=== PATIENT | male | born 1965 | race Caucasian/White ===

== ENCOUNTER 2016-06-09 23:22 | Emergency (ER) | payer SELFPAY ==
[~2016-06-09] VITALS: Ht 213.4 cm; Wt 79.9 kg
[2016-06-09 23:34] VITALS: Ht 213.4 cm; Wt 79.9 kg
[2016-06-10] MEDS ORDERED: ESCI1TAB10 PO (00:16)
[2016-06-10] MEDS ORDERED: PANT40TA PO (00:16)
[2016-06-10] MEDS ORDERED: OLAN5TAB3 PO (00:17)
[2016-06-10] MEDS ORDERED: HYDR4TAB78 PO (00:18)
[2016-06-10] MEDS ORDERED: HYDR8TAB29 PO (00:18)
[2016-06-10] MEDS ORDERED: LIDOCAINE/EPINEPH/TETRACAINE 1 EA SYR ONE (00:32)
--- NOTE | 2016-06-10 01:04 | EMERGENCY ROOM VISIT NOTE ---
History Report prepared by Ra: Nesha Patrick Under the Supervision of: Dr. Lilli Kebede D.O. First contact with patient: 00:06 Chief Complaint: PAIN (GENERALIZED) Stated Complaint: CANCER PATIENT,PAIN IN LOW BACK AND STOMACH History of Present Illness The patient is a 51 year old male who presents to the Emergency Room with complaints of persistent generalized aches that began prior to arrival. He currently rates his discomfort as a 7/10 in severity. The patient states that he has a history of esophageal cancer, but denies receiving any current treatment. He states that he received both chemotherapy and radiation once in the past. The patient notes that he was diagnosed with his cancer in 2014. He states that he feels he is retaining fluid in his back. The patient notes increased swelling to his lower extremities. He states that his doctors are concerned about his kidneys. The patient notes a decrease in appetite and constipation. The patient states that he has tried using an enema two days ago , but has become constipated again. The patient denies any fever, chills, chest pain, nausea, or vomiting. He reports increased abdominal pain when lying flat. The patient reports shortness of breath with walking up the stairs. The patient states that to sleep, he has been sleeping upright with his legs crisscrossed. Source of History: patient Onset: prior to arrival Position: other (global) Symptom Intensity: 7/10 Quality: other (generalized pain) Timing: other (persistent) Associated Symptoms: + SOB, + abdominal pain, No chest pain, No chills, No fevers, No nausea, No vomiting Note: Associated Symptoms: decrease in appetite, increased swelling to lower extremities, constipation Review of Systems See HPI for pertinent positives & negatives. A total of 10 systems reviewed and were otherwise negative. Past Medical & Surgical Medical Problems: (1) Esophageal cancer Family History No pertinent family history stated. Social History Smoking Status: Former Smoker Marital Status: Housing Status: lives with significant other Current/Historical Medications Scheduled Escitalopram Oxalate (Lexapro), 20 MG PO DAILY Furosemide (Lasix), 1 TAB PO DAILY Hydromorphone Hcl (Dilaudid), 16 MG PO BID Pantoprazole (Protonix), 40 MG PO DAILY Potassium Chloride (Micro-K Ext Rel), 10 MEQ PO DAILY Scheduled PRN Hydromorphone Hcl (Dilaudid), 4 MG PO UD PRN for Breakthrough Pain Olanzapine (Zyprexa Zydis Odt), 1 DOSE PO Q6 PRN for Pain Allergies Coded Allergies: No Known Allergies (Unverified , 06/10/16) Physical Exam Vital Signs Date Time Temp Pulse Resp B/P Pulse Ox O2 Delivery O2 Flow Rate FiO2 06/10/16 03:08 71 16 103/74 98 Room Air 06/10/16 01:20 79 16 109/61 97 Room Air 06/10/16 00:45 83 Physical Exam HEENT: Head - normocephalic and atraumatic Pupils are equal, round, and reactive to light. Extraocular eye muscles are intact, and sclera are anicteric. Nose - moist nasal mucosa without discharge. Mouth - moist buccal mucosa. Oropharynx is nonerythematous and there is no tonsillar exudate or edema noted. Neck: Supple; no JVD, nuchal rigidity, cervical lymphadenopathy, or auscultated bruits. Heart: Regular rate and rhythm. There is a normal S1 and S2 with no murmurs, clicks, or gallops appreciated. Lungs: Clear to auscultation bilaterally with no wheezes, rales, or rhonchi. Abdomen: Moderately distended, hypoactive bowel sounds. Soft, completely nontender. There are no palpable pulsatile masses or hepatosplenomegaly. There is no guarding, rigidity, or rebound noted. Back: Trace sacral edema. Extremities: 2+ pitting edema in the legs. No evidence of cyanosis, clubbing. There are easily palpable peripheral pulses. Skin: Gardner, warm and dry with good turgor and no rashes. Medical Decision & Procedures ER Provider Diagnostic Interpretation: 2 view abdomen, obstruction series, interpreted by me: chest is unremarkable, Mediport in place, no free air in abdomen, normal bowel gas pattern, moderate colonic fecal retention Laboratory Results 06/10/16 01:20 Red Blood Count 3.61, Mean Corpuscular Volume 88.4, Mean Corpuscular Hemoglobin 29.1, Mean Corpuscular Hemoglobin Concent 32.9, Mean Platelet Volume 9.3, Neutrophils (%) (Auto) 80.0, Lymphocytes (%) (Auto) 9.4, Monocytes (%) (Auto) 7.4, Eosinophils (%) (Auto) 2.7, Basophils (%) (Auto) 0.5, Neutrophils # (Auto) 4.42, Lymphocytes # (Auto) 0.52, Monocytes # (Auto) 0.41, Eosinophils # (Auto) 0.15, Basophils # (Auto) 0.03 06/10/16 01:20 Test 06/10/16 01:20 White Blood Count 5.53 K/uL (4.8-10.8) Red Blood Count 3.61 M/uL (4.7-6.1) Hemoglobin 10.5 g/dL (14.0-18.0) Hematocrit 31.9 % (42-52) Mean Corpuscular Volume 88.4 fL (80-100) Mean Corpuscular Hemoglobin 29.1 pg (25-34) Mean Corpuscular Hemoglobin Concent 32.9 g/dl (32-36) Platelet Count 80 K/uL (130-400) Mean Platelet Volume 9.3 fL (7.4-10.4) Neutrophils (%) (Auto) 80.0 % Lymphocytes (%) (Auto) 9.4 % Monocytes (%) (Auto) 7.4 % Eosinophils (%) (Auto) 2.7 % Basophils (%) (Auto) 0.5 % Neutrophils # (Auto) 4.42 K/uL (1.4-6.5) Lymphocytes # (Auto) 0.52 K/uL (1.2-3.4) Monocytes # (Auto) 0.41 K/uL (0.11-0.59) Eosinophils # (Auto) 0.15 K/uL (0-0.5) Basophils # (Auto) 0.03 K/uL (0-0.2) RDW Standard Deviation 48.7 fL (36.4-46.3) RDW Coefficient of Variation 14.9 % (11.5-14.5) Immature Granulocyte % (Auto) 0.0 % Immature Granulocyte # (Auto) 0.00 K/uL (0.00-0.02) Platelet Estimate DECREASED Anion Gap 8.0 mmol/L (3-11) Est Creatinine Clear Calc Drug Dose 125.0 ml/min Estimated GFR () 120.5 Estimated GFR (Non- 104.0 BUN/Creatinine Ratio 12.2 (10-20) Calcium Level 8.6 mg/dl (8.5-10.1) Total Bilirubin 1.3 mg/dl (0.2-1) Direct Bilirubin 0.8 mg/dl (0-0.2) Aspartate Amino Transf (AST/SGOT) 176 U/L (15-37) Alanine Aminotransferase (ALT/SGPT) 166 U/L (12-78) Alkaline Phosphatase 803 U/L (45-117) Total Creatine Kinase 336 U/L (39-308) Creatine Kinase MB < 0.5 ng/ml (0.5-3.6) Creatine Kinase MB Ratio (0-3.0) Troponin I < 0.015 ng/ml (0-0.045) Pro-B-Type Natriuretic Peptide 55 pg/ml (0-900) Total Protein 6.7 gm/dl (6.4-8.2) Albumin 3.0 gm/dl (3.4-5.0) Laboratory results per my review. Medications Administered Medications (Trade) Dose Ordered Sig/Tram Route Start Time Stop Time Status Last Admin Dose Admin Tetracaine/ Epinephrine/ Lidocaine (L.e.t. Gel 4%/ 1:100/0.5%) 1 ea STK-MED ONCE .ROUTE 06/10/16 00:32 06/10/16 00:33 DC 06/10/16 00:32 1 EA Procedure The patient was treated with Tetracaine/Epinephrine/Lidocaine to port sight. Potassium Chloride 10 meq PO, Lasix Tab 20 mg PO. ECG Indication: abdominal pain Rate (beats per minute): 82 Rhythm: normal sinus Findings: no acute ischemic change, no ectopy ED Course 0016: Past medical records reviewed. The patient was evaluated in room B3B. A complete history and physical exam was performed. Laboratory studies were drawn as above. 0021: I spoke to the patient's oncologist. 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 She notes that they have exhausted all standard therapies, and is going to be placed on a clinical trial of immunotherapy. She notes that the patient had edema around his ankles at the morning clinic. She states that the patient has not been eating very well. She notes that the patient's hemoglobin was 11.9, creatinine 0.6, AST and ALT slightly elevated, but normal bilirubin. 0032: Ordered LILIANA gel to the port sight. 0224: I reevaluated the patient and he feels the same. I discussed the exam findings with him and I discussed the treatment plan. He verbalized complete understanding and agreement. He is going to get Lasix and potassium to take home and take in the morning and is going to have an enema. He will be ready for discharge after the enema. Medical Decision The patient is a 51 year old male who presents to the ED with generalized pain. Differential diagnosis includes ascites, constipation, lower extremity edema. Lab interpretation: normal white count, hemoglobin 10.5, platelet count 80, creatinine 0.7, BUN 10, AST 176, ALT 166, negative troponin, albumin is low at three, total bilirubin 1.3, direct bilirubin 0.8 This is a 51-year-old male patient with a history of adenocarcinoma of the esophagus. The patient presents with some swelling to the low back. The patient flew here from [place]. He does have increased edema to the lower extremities and some trace sacral edema. The patient does sit upright to sleep with his legs crossed. This most likely also contributes to the swelling in his lower legs. I've asked the patient to sleep stretched out. I will also start him on a short course of Lasix. I spoke with the oncologist about the possibility of a portal vein thrombosis. Laboratory studies have not changed much since the morning. X-ray did show moderate stool within the rectum and descending colon. We did attempt a soapsuds enema with only little results. Impression Primary Impression: Lower extremity edema Additional Impression: Constipation Scribe Attestation The scribe's documentation has been prepared under my direction and personally reviewed by me in its entirety. I confirm that the note above accurately reflects all work, treatment, procedures, and medical decision making performed by me. Departure Information Dispostion Home / Self-Care Prescriptions Potassium Chloride (Micro-K Ext Rel) 10 Meq Capcr 10 MEQ PO DAILY, #5 CAP Prov: Lilli Kebede D.O. 06/10/16 Furosemide (LASIX) 20 Mg Tab 1 TAB PO DAILY, #5 TAB 1 Refill Prov: Lilli Kebede D.O. 06/10/16 Referrals No Doctor, Assigned (PCP) Forms HOME CARE DOCUMENTATION FORM, IMPORTANT VISIT INFORMATION, WORK / SCHOOL INSTRUCTIONS Patient Instructions Constipation, My [facility] Additional Instructions Take plenty of clear liquids Take a well-balanced diet. Lasix dose and potassium dose daily. Follow up with docs at home on Sunday You may want to use milk of magnesia or magnesium citrate to get bowels moving Try to avoid sleeping upright with legs crossed Problem Qualifiers
[2016-06-10 01:44] LABS: ALT/SGPT 166 U/L (12-78); AST/SGOT 176 U/L (15-37); BLOOD UREA NITROGEN 10 mg/dl (7-18); BUN/CREATININE RATIO 12.2 (10-20); CALCIUM 8.6 mg/dl (8.5-10.1); CARBON DIOXIDE 28 mmol/L (21-32); CHLORIDE 97 mmol/L (98-107); CREATININE 0.79 mg/dl (0.60-1.40); GLUCOSE 93 mg/dl (70-99); POTASSIUM 4.5 mmol/L (3.5-5.1); SODIUM 133 mmol/L (136-145)
[2016-06-10 01:50] LABS: ALKALINE PHOSPHATASE 803 U/L (45-117); HEMATOCRIT 31.9 % (42-52); MEAN CELL VOLUME 88.4 fL (80-100); MEAN CORPUSCULAR HEMOGLOBIN 29.1 pg (25-34); MEAN CORPUSCULAR HGB CONC 32.9 g/dl (32-36); MEAN PLATELET VOLUME 9.3 fL (7.4-10.4); PLATELET COUNT 80 K/uL (130-400); RED BLOOD COUNT 3.61 M/uL (4.7-6.1); WHITE BLOOD COUNT 5.53 K/uL (4.8-10.8)
[2016-06-10 01:51] LABS: BASO % 0.5 %; BASO ABS # 0.03 K/uL (0-0.2); COMPLETE YES; EOS % 2.7 %; LYMPH % 9.4 %; LYMPH ABS # 0.52 K/uL (1.2-3.4); MONO % 7.4 %; PLT ESTIMATE DECREASED
[2016-06-10] MEDS ORDERED: FUROSEMIDE 20 MG TAB PO STA (02:31)
[2016-06-10] MEDS ORDERED: POTASSIUM CHLORIDE 10 MEQ TABCR PO STA (02:31)
[2016-06-10 03:08] VITALS: BP 103/74; PULSE 71; O2SAT 98
[2016-06-10] MEDS ORDERED: POTA10CA28 PO (03:27)
[2016-06-10] MEDS ORDERED: FURO20TA PO (03:27)
--- NOTE | 2016-06-10 06:04 | DIAGNOSTIC IMAGING REPORT ---
ABDOMEN 2VIEW W/PA CHEST RTN CLINICAL HISTORY: eval for constipation pain COMPARISON STUDY: No previous studies for comparison. FINDINGS: Central catheter in superior vena cava. Lungs are clear. Nonobstructive bowel pattern. Common bile duct stent. IMPRESSION: No acute process. Electronically signed by: Darnell Madrigal M.D. 06/10/2016 6:03 AM Dictated Date/Time: 06/10/2016 6:02 AM
== END 2016-06-10 03:49 | disposition home or self-care (01) ==
LOC: C.EDB 23:25
DX: R60.0 Localized edema (principal); K59.00 Constipation, unspecified; C16.0 Malignant neoplasm of cardia; Z87.891 Personal history of nicotine dependence